=== PATIENT | female | born 1990 | race Two or more races ===

== ENCOUNTER 2018-09-05 23:48 | Emergency (ER) | payer SELFPAY ==
[~2018-09-05] VITALS: Ht 162.6 cm; Wt 106.1 kg
[2018-09-06] VITALS: BP 135/78
--- NOTE | 2018-09-06 00:21 | PHYS DOC ---
Adult General Chief Complaint Chief Complaint: INSECT BITE HPI HPI 28-year-old female presents with concerns about a bug bite. She states a few days ago she got bit behind the left knee by a bug. She states over the next couple days she had some paresthesias in her left arm and leg. She denies a headache. She denies any weakness. She denies any gait disturbance.[] Review of Systems Review of Systems Integument: Denies rash or skin lesions [] Neurologic: Per history of present illness[] All other systems were reviewed and found to be within normal limits, except as documented in this note. Allergies Allergies Allergies Coded Allergies Type Severity Reaction Last Updated Verified clindamycin Allergy Intermediate Rash 03/13/18 Yes Physical Exam Physical Exam Constitutional: Well developed, well nourished, no acute distress, non-toxic appearance. [] HENT: Normocephalic, atraumatic, bilateral external ears normal, oropharynx moist, no oral exudates, nose normal. [] Eyes: PERRLA, EOMI, conjunctiva normal, no discharge. [] Neck: Normal range of motion, no tenderness, supple, no stridor. [] Cardiovascular:Heart rate regular rhythm, no murmur [] Lungs & Thorax: Bilateral breath sounds clear to auscultation [] Abdomen: Bowel sounds normal, soft, no tenderness, no masses, no pulsatile masses. [] Skin: Warm, dry, no erythema, no rash. [] Back: No tenderness, no CVA tenderness. [] Extremities: No tenderness, no cyanosis, no clubbing, ROM intact, no edema. [] Neurologic: Alert and oriented X 3, normal motor function, normal sensory function, no focal deficits noted. [] Psychologic: Affect normal, judgement normal, mood normal. [] EKG EKG [] Radiology/Procedures Radiology/Procedures [] Course & Med Decision Making Course & Med Decision Making Pertinent Labs and Imaging studies reviewed. (See chart for details) [ED course: Evaluation reveals a healthy 28-year-old female in no distress. Her neurologic exam was completely benign. I reassured the patient that I did not feel this was anything serious.] Dragon Disclaimer Dragon Disclaimer This electronic medical record was generated, in whole or in part, using a voice recognition dictation system. Departure Departure Impression: Primary Impression: Left leg paresthesias Additional Impression: Paresthesia Disposition: HOME, SELF-CARE Condition: STABLE Referrals: PETER DUMAS DO (PCP) Patient Instructions: Paresthesia Additional Instructions: Take ibuprofen as we discussed. Rest in a cool quiet dark room this evening. Return to the emergency department with any new or concerning symptoms Problem Qualifiers ANITA VINSON DO Sep 06, 2018 00:21
== END 2018-09-06 00:39 | disposition home or self-care (01) ==
LOC: ER 09-06 00:28
DX: R20.2 Paresthesia of skin (principal); Z88.1 Allergy status to other antibiotic agents
CPT/HCPCS: 99281

== ENCOUNTER 2019-03-25 22:34 | Emergency (ER) | payer OTHER ==
[~2019-03-25] VITALS: Ht 162.6 cm; Wt 98.0 kg
[2019-03-25 22:50] VITALS: BP 137/61
[2019-03-25 23:45] LABS: BILIRUBIN,URINE NEGATIVE (NEG); CLARITY,URINE CLEAR; COLOR,URINE YELLOW; NITRITE,URINE NEGATIVE (NEG); PROTEIN,URINE NEGATIVE (NEG-TRACE); UROBILINOGEN,URINE 0.2 mg/dL (0.2 mg/dL)
[2019-03-25 23:48] LABS: SQUAMOUS EPITHELIAL CELL,UR FEW /LPF
[2019-03-25 23:49] LABS: BACTERIA,URINE FEW /HPF (0-FEW)
[2019-03-26] MEDS ORDERED: CEPH-264 PO (00:27)
[2019-03-26] MEDS ORDERED: HYDR-3164 PO (00:27)
[2019-03-26] MEDS ORDERED: ORPH100T PO (00:28)
--- NOTE | 2019-03-26 00:28 | PHYS DOC ---
Past Medical History Past Medical History: Anemia Additional Past Medical Histor: VITAMIN D DEF (JYOTI OLIVO APRN) Past Surgical History: No Surgical History (JYOTI OLIVO APRN) Alcohol Use: Occasionally Drug Use: None (JYOTI OLIVO APRN) Attending Signature I have participated in the care of this patient and I have reviewed and agree with all pertinent clinical information above including history, exam, and recommendations. (JAMIE HENDERSON MD) Adult General Chief Complaint Chief Complaint: LOWER BACK PAIN OR INJURY HPI HPI Patient is a 28 year old female who presents with a chiropractor earlier this morning. 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 She states is a sharp and achy pain. She states it feels like "as if I jumped and landed on my feet hard". (JYOTI OLIVO APRN) Review of Systems Review of Systems Musculoskeletal: low back pain or joint pain [] All other systems were reviewed and found to be within normal limits, except as documented in this note. (JYOTI OLIVO APRN) Current Medications Current Medications Current Medications Medications (Trade) Dose Ordered Sig/Abeba Start Time Stop Time Status Last Admin Dose Admin Ketorolac Tromethamine (Toradol Im) 60 mg 1X ONCE 03/26/19 00:30 03/26/19 00:31 DC 03/26/19 00:38 60 MG Orphenadrine Citrate (Norflex) 60 mg 1X ONCE 03/26/19 00:30 03/26/19 00:31 DC 03/26/19 00:38 60 MG (JAIME HENDERSON MD) Allergies Allergies Allergies Coded Allergies Type Severity Reaction Last Updated Verified clindamycin Allergy Intermediate Rash 03/13/18 Yes (JAIME HENDERSON MD) Physical Exam Physical Exam Constitutional: Well developed, well nourished, no acute distress, non-toxic appearance. [] HENT: Normocephalic, atraumatic, bilateral external ears normal, oropharynx m oist, no oral exudates, nose normal. [] Eyes: PERRLA, EOMI, conjunctiva normal, no discharge. [] Neck: Normal range of motion, no tenderness, supple, no stridor. [] Cardiovascular:Heart rate regular rhythm, no murmur [] Lungs & Thorax: Bilateral breath sounds clear to auscultation [] Abdomen: Bowel sounds normal, soft, no tenderness, no masses, no pulsatile masses. [] Skin: Warm, dry, no erythema, no rash. [] Back: No tenderness, no CVA tenderness. [] Extremities: No tenderness, no cyanosis, no clubbing, ROM intact, no edema. [] Neurologic: Alert and oriented X 3, normal motor function, normal sensory function, no focal deficits noted. [] Psychologic: Affect normal, judgement normal, mood normal. Normal Physical Exam[] (JYOTI OLIVO APRN) Current Patient Data Vital Signs Vital Signs Date Time Temp Pulse Resp B/P (MAP) Pulse Ox O2 Delivery O2 Flow Rate FiO2 03/25/19 22:50 98.4 89 12 137/61 (86) 98 Room Air 98.4 (JAIME HENDERSON MD) Lab Values Laboratory Tests Test 03/25/19 23:07 03/25/19 23:11 Urine Collection Type Unknown Urine Color Yellow Urine Clarity Clear Urine pH 7.0 Urine Specific [place] 1.020 Urine Protein Negative mg/dL (NEG-TRACE) Urine Glucose (UA) Negative mg/dL (NEG) Urine Ketones (Stick) Negative mg/dL (NEG) Urine Blood Small (NEG) Urine Nitrite Negative (NEG) Urine Bilirubin Negative (NEG) Urine Urobilinogen Dipstick 0.2 mg/dL (0.2 mg/dL) Urine Leukocyte Esterase Large (NEG) Urine RBC 3-5 /HPF (0-2) Urine WBC 11-20 /HPF (0-4) Urine Squamous Epithelial Cells Few /LPF Urine Bacteria Few /HPF (0-FEW) Urine Mucus Slight /LPF POC Urine HCG, Qualitative Hcg negative (Negative) (JAIME HENDERSON MD) EKG EKG [] (JYOTI OLIVO APRN) Radiology/Procedures Radiology/Procedures [] (JYOTI OLIVO APRN) Impressions: [facility] [address] [place] [address] IMAGING REPORT Signed PATIENT: JAVIER VIEIRAACCOUNT: [id number] : 1990 LOCATION: ER AGE: 28 SEX: F EXAM STATUS: REG ER ORD. PHYSICIAN: JYOTI OLIVO APRN REASON: pain PROCEDURE: LUMBAR SPINE MIN 4V Exam: Lumbar spine 4 views INDICATION: Pain TECHNIQUE: Frontal, lateral, bilateral oblique and coned-down magnification view of the sacral junction. Comparisons: None FINDINGS: Vertebral body heights and alignment are well-maintained. No significant spondylotic change in the lumbar spine. Moderate stool burden predominantly in the ascending and descending colon. IMPRESSION: Unremarkable lumbar spine radiograph. Moderate stool burden. Electronically signed by: Vanessa Romero MD (03/26/2019 12:53 AM) [facility] DICTATED and SIGNED BY: VANESSA ROMERO MD DATE: 03/26/1950 (JYOTI OLIVO APRN) Course & Med Decision Making Course & Med Decision Making No tenderness with palpation. Patient has full range of motion of her back and EXTREMITIES. NO WEAKNESSES OR NUMBNESS AND TINGLING. NO DEFORMITY TO HER BACK OR HER SPINE IS FELT. NO BRUISING TO HER BACK. LUNGS ARE CLEAR TO AUSCULTATION LOBES. ALERT AND ORIENTED. PATIENT'S URINALYSIS SHOWS INFECTION. PATIENT STATES IT IS HARD FOR HER TO STAND UP STRAIGHT BECAUSE OF THE PAIN. No CVA tenderness. Abdomen is soft and nontender. Alert and oriented. Speaks in full clear sentences. Skin pink warm and dry. Ambulatory with a steady gait. Patient rates her pain a 10 out of 10 at this time. She states it is worse with movement. Lumbar x-ray shows no acute findings. Patient does have moderate amount of stool. Patient will be treated with antibiotic for her urinary tract infection. (JYOTI OLIVO APRN) Dragon Disclaimer Dragon Disclaimer This electronic medical record was generated, in whole or in part, using a voice recognition dictation system. (JYOTI OLIVO APRN) Departure Departure Impression: Primary Impression: Low back pain Additional Impression: UTI (urinary tract infection) Disposition: 01 HOME, SELF-CARE Condition: STABLE Referrals: PETER DUMAS DO (PCP) Patient Instructions: Low Back Strain with Rehab-SportsMed, Urinary Tract Infection Additional Instructions: Take Medication as prescribed. Follow up with primary care provider. Try using a heating pad to help with pain. Scripts Orphenadrine Citrate (ORPHENADRINE CITRATE) 100 Mg Tablet.er 1 TAB PO BID, #20 TAB Prov: JYOTI OLIVO APRN 03/26/19 Hydrocodone/Apap 5-325 (NORCO 5-325 TABLET) 1 Each Tablet 1 TAB PO PRN Q6HRS PRN for PAIN, #10 TAB 0 Refills Prov: JYOTI OLIVO APRN 03/26/19 Cephalexin (KEFLEX) 500 Mg Capsule 1 CAP PO BID for 7 Days, #14 CAP 0 Refills Prov: JYOTI OLIVO APRN 03/26/19 Problem Qualifiers Primary Impression: Low back pain Chronicity: acute Back pain laterality: bilateral Sciatica presence: without sciatica Qualified Codes: M54.5 - Low back pain Additional Impression: UTI (urinary tract infection) Urinary tract infection type: site unspecified Hematuria presence: with hematuria Qualified Codes: N39.0 - Urinary tract infection, site not specified; R31.9 - Hematuria, unspecified JYOTI OLIVO APRN Mar 26, 2019 00:28 JAIME HENDERSON MD Mar 26, 2019 03:00
[2019-03-26] MEDS: ORPHENADRINE CITRATE 60 MG/2 ML VIAL. IM ONE (00:38)
[2019-03-26] MEDS: KETOROLAC 60 MG/2 ML VIAL. IM ONE (00:38)
--- NOTE | 2019-03-26 00:55 | RAD ---
Exam: Lumbar spine 4 views INDICATION: Pain TECHNIQUE: Frontal, lateral, bilateral oblique and coned-down magnification view of the sacral junction. Comparisons: None FINDINGS: Vertebral body heights and alignment are well-maintained. No significant spondylotic change in the lumbar spine. Moderate stool burden predominantly in the ascending and descending colon. IMPRESSION: Unremarkable lumbar spine radiograph. Moderate stool burden. Electronically signed by: Vanessa Sam MD (03/26/2019 12:53 AM) [facility]
== END 2019-03-26 01:16 | disposition home or self-care (01) ==
LOC: ER 22:34
DX: N39.0 Urinary tract infection, site not specified (principal); R31.9 Hematuria, unspecified; Z86.2 Personal history of diseases of the blood and blood-forming organs and certain disorders involving the immune mechanism; Z88.1 Allergy status to other antibiotic agents
CPT/HCPCS: 72110; 81001; 81025; 87086; 96372; 99285; J1885; J2360

== ENCOUNTER 2019-09-10 16:46 | Observation (INO) | payer OTHER ==
[~2019-09-10] VITALS: Ht 162.6 cm; Wt 100.0 kg
[~2019-09-10 16:46] MED LIST: CEPH-264 PO; HYDR-3164 PO; ORPH100T PO
--- NOTE | 2019-09-10 17:28 | PHYS DOC ---
Past Medical History Past Medical History: Anemia Additional Past Medical Histor: VITAMIN D DEF Past Surgical History: No Surgical History Smoking Status: Never Smoker Alcohol Use: Occasionally Drug Use: None General Adult EDM: Chief Complaint: ABNORMAL LABS HPI: HPI: Patient is a 29 year old female who presented to ER today due to abnormal hemoglobin level. Patient has history of iron deficiency anemia, dysfunctional uterine bleeding. Patient has been dealing with this problem for about 10 years. Patient has been evaluated by her marine erector due to dysfunctional uterine bleeding. Patient normally would have prolonged period. Sometimes she bleeds for a month off and on. Patient was evaluated by her family doctor in the past, diagnosed with iron deficiency anemia, she had received iron transfusion in the past. Patient started her last mental. Sometime at the beginning of July, continue to bleeding at this time. Patient denies heavy vaginal bleeding, she said the bleeding is just like her period. Patient denies any pelvic pain, no abdominal pain, no fever. Patient said she been feeling weak and dizzy, so she went to see her doctor on Friday, some blood work was checked, today her doctor called her to come to ER for evaluation because her hemoglobin level was 5.6. Patient denies any chest pain, no trouble breathing. Patient denies any headache. Review of Systems: Review of Systems: Constitutional: Denies fever or chills. POSITIVE FOR GENERALIZED WEAKNESS. Eyes: Denies change in visual acuity. [ HENT: Denies nasal congestion or sore throat. [] Respiratory: Denies cough or shortness of breath. [] Cardiovascular: Denies chest pain or edema. [] GI: Denies abdominal pain, nausea, vomiting, bloody stools or diarrhea. [] : Positive for vaginal bleeding. Musculoskeletal: Denies back pain or joint pain. [] Integument: Denies rash. [] Neurologic: Denies headache, focal weakness or sensory changes. [] Endocrine: Denies polyuria or polydipsia. [] Lymphatic: Denies swollen glands. [] Psychiatric: Denies depression or anxiety. [] Heart Score: Risk Factors: Risk Factors: DM, Current or recent (<one month) smoker, HTN, HLP, family history of CAD, obesity. Risk Scores: Score 0 - 3: 2.5% MACE over next 6 weeks - Discharge Home Score 4 - 6: 20.3% MACE over next 6 weeks - Admit for Clinical Observation Score 7 - 10: 72.7% MACE over next 6 weeks - Early Invasive Strategies Allergies: Allergies: Allergies Coded Allergies Type Severity Reaction Last Updated Verified clindamycin Allergy Intermediate Rash 03/13/18 Yes Physical Exam: PE: Constitutional: Well developed, well nourished, no acute distress, non-toxic appearance. [] HENT: Normocephalic, atraumatic, bilateral external ears normal, oropharynx moist, no oral exudates, nose normal. [] Eyes: PERRLA, EOMI, conjunctiva normal, no discharge. [] Neck: Normal range of motion, no tenderness, supple, no stridor. [] Cardiovascular:Heart rate regular rhythm, no murmur [] Lungs & Thorax: Bilateral breath sounds clear to auscultation [] Abdomen: Bowel sounds normal, soft, no tenderness, no masses, no pulsatile masses. [] Skin: Warm, dry, no erythema, no rash. [] Back: No tenderness, no CVA tenderness. [] Extremities: No tenderness, no cyanosis, no clubbing, ROM intact, no edema. [] Neurologic: Alert and oriented X 3, normal motor function, normal sensory function, no focal deficits noted. [] Psychologic: Affect normal, judgement normal, mood normal. [] Current Patient Data: Labs: Laboratory Tests Test 09/10/19 16:59 09/10/19 17:25 09/10/19 17:31 Urine Collection Type Unknown Urine Color Red Urine Clarity Cloudy Urine pH 7.0 Urine Specific [place] 1.020 Urine Protein 30 mg/dL Urine Glucose (UA) Negative mg/dL Urine Ketones (Stick) Trace mg/dL Urine Blood Large Urine Nitrite Negative Urine Bilirubin Negative Urine Urobilinogen Dipstick 0.2 mg/dL Urine Leukocyte Esterase Moderate Urine RBC Tntc /HPF Urine WBC 20-40 /HPF Urine Squamous Epithelial Cells Mod /LPF Urine Bacteria Few /HPF Urine Mucus Mod /LPF White Blood Count 9.4 x10^3/uL Red Blood Count 3.16 x10^6/uL Hemoglobin 5.6 g/dL Hematocrit 18.0 % Mean Corpuscular Volume 57 fL Mean Corpuscular Hemoglobin 18 pg Mean Corpuscular Hemoglobin Concent 31 g/dL Red Cell Distribution Width 23.3 % Platelet Count 390 x10^3/uL Neutrophils (%) (Auto) 60 % Lymphocytes (%) (Auto) 32 % Monocytes (%) (Auto) 6 % Eosinophils (%) (Auto) 1 % Basophils (%) (Auto) 1 % Neutrophils # (Auto) 5.7 x10^3/uL Lymphocytes # (Auto) 3.0 x10^3/uL Monocytes # (Auto) 0.5 x10^3/uL Eosinophils # (Auto) 0.1 x10^3/uL Basophils # (Auto) 0.1 x10^3/uL Prothrombin Time 14.4 SEC Prothromb Time International Ratio 1.2 Activated Partial Thromboplast Time 33 SEC Sodium Level 139 mmol/L Potassium Level 3.7 mmol/L Chloride Level 103 mmol/L Carbon Dioxide Level 27 mmol/L Anion Gap 9 Blood Urea Nitrogen 14 mg/dL Creatinine 1.0 mg/dL Estimated GFR (Cockcroft-Gault) 66.5 BUN/Creatinine Ratio 14 Glucose Level 119 mg/dL Calcium Level 8.1 mg/dL Iron Level 7 ug/dL Total Iron Binding Capacity 374 ug/dL Iron Saturation 2 % Total Bilirubin 0.2 mg/dL Aspartate Amino Transf (AST/SGOT) 14 U/L Alanine Aminotransferase (ALT/SGPT) 17 U/L Alkaline Phosphatase 95 U/L Total Protein 7.3 g/dL Albumin 3.6 g/dL Albumin/Globulin Ratio 1.0 Bedside Urine HCG, Qualitative Hcg negative Current Medications Medications (Trade) Dose Ordered Sig/Abeba Route PRN Reason Start Time Stop Time Status Last Admin Dose Admin Ondansetron HCl (Zofran) 4 mg PRN Q8HRS PRN IV NAUSEA/VOMITING 09/10/19 18:30 09/11/19 18:29 EKG: EKG: [] Radiology/Procedures: Radiology/Procedures: [] Course & Med Decision Making: Course & Med Decision Making Pertinent Labs and Imaging studies reviewed. (See chart for details) Patient is a [id number] female who was felt to be anemic, with hemoglobin level at 5.6. Most dynamically patient is stable, I suspect that patient is chronically anemic. Patient will be admitted to hospital for blood transfusion, will check her iron level. Dragon Disclaimer: Dragon Disclaimer: This electronic medical record was generated, in whole or in part, using a voice recognition dictation system. Departure Departure Impression: Primary Impression: Anemia Additional Impression: Dysfunctional uterine bleeding Disposition: 09 ADMITTED INPATIENT Admitting Physician: SANTA (DR. BAEZ) Condition: STABLE Referrals: PETER DUMAS DO (PCP) Justicifation of Admission Dx: Justifications for Admission: Justification of Admission Dx: N/A JOSE MCDANIEL DO Sep 10, 2019 17:28
[2019-09-10 17:41] LABS: BASO # 0.1 x10^3/uL (0.0-0.2); BASO % 1 % (0-3); EOS # 0.1 x10^3/uL (0.0-0.7); EOS % 1 % (0-3); LYMPH % 32 % (24-48); MEAN CORPUSCULAR HEMOGLOBIN 18 pg (25-35); MEAN CORPUSCULAR HGB CONC 31 g/dL (31-37); MEAN CORPUSCULAR VOLUME 57 fL (79-100); MONO # 0.5 x10^3/uL (0.0-1.1); MONO % 6 % (0-9); NEUT # 5.7 x10^3/uL (1.8-7.7); NEUT % 60 % (31-73); PLATELET COUNT 390 x10^3/uL (140-400); RED BLOOD COUNT 3.16 x10^6/uL (3.50-5.40); RED CELL DISTRIBUTION WIDTH 23.3 % (11.5-14.5); WHITE BLOOD COUNT 9.4 x10^3/uL (4.0-11.0)
[2019-09-10 17:43] LABS: CALCIUM 8.1 mg/dL (8.5-10.1); GFR 66.5; POTASSIUM 3.7 mmol/L (3.5-5.1)
[2019-09-10 17:46] LABS: HEMOGLOBIN 5.6 g/dL (12.0-15.5)
[2019-09-10 17:48] LABS: ALBUMIN 3.6 g/dL (3.4-5.0); TOTAL BILIRUBIN 0.2 mg/dL (0.2-1.0); TOTAL PROTEIN 7.3 g/dL (6.4-8.2)
[2019-09-10 18:00] LABS: PROTHROMBIN TIME PATIENT 14.4 SEC (11.7-14.0)
[2019-09-10 18:12] LABS: BILIRUBIN,URINE NEGATIVE (NEG); CLARITY,URINE CLOUDY; NITRITE,URINE NEGATIVE (NEG); PROTEIN,URINE 30 mg/dL (NEG-TRACE); UROBILINOGEN,URINE 0.2 mg/dL (0.2 mg/dL)
[2019-09-10 18:25] LABS: COLOR,URINE RED
[2019-09-10 18:26] LABS: SQUAMOUS EPITHELIAL CELL,UR MOD /LPF
[2019-09-10 18:28] LABS: BACTERIA,URINE FEW /HPF (0-FEW); RBC,URINE TNTC /HPF (0-2); WBC,URINE 20-40 /HPF (0-4)
[2019-09-10] MEDS ORDERED: ONDANSETRON PF 4 MG/2 ML VIAL. IV PRN (18:30)
[2019-09-10 19:07] VITALS: BP 124/60
[2019-09-10 19:16] LABS: ANISOCYTOSIS MOD; HYPOCHROMIA MARKED; MICROCYTOSIS MARKED; OVALOCYTES MOD; PLT ESTIMATE ADEQUATE (ADEQUATE); POLYCHROMASIA SLIGHT
[2019-09-10] MEDS ORDERED: IRON SUCROSE COMPLEX 500 MG in IV NORMAL SALINE 250ML 250 ML IV ONE (19:30)
--- NOTE | 2019-09-10 19:30 | PDOC1 ---
History and Physical Date of Admission Date of Admission DATE: 09/10/19 TIME: 19:24 Source Source: Chart review, Patient History of Present Illness History of Present Illness Patient is a 29 year old female was sent to the ER by Laura Parks for anemia, weakness, and dizzyness worse over the past few days. She has prior known anemia and workup but not the severe, Patient has history of iron deficiency anemia, dysfunctional uterine bleeding, almost 10 years. Her Manager Bench is at [facility], and has prior snowden done. heavy periods since menarche, but probably worse lately. she had received iron transfusion in the past. Seen at primary care for dizzyness this week and labs were checked, her doctor called her to come to ER for evaluation because her hemoglobin level was 5.6. she works at a bank Past Medical History Cardiovascular: No pertinent hx GI: No pertinent hx Heme/Onc: Iron deficiency Anemia Endocrine: No pertinent hx Para: 0 Past Surgical History Past Surgical History: No pertinent history Family History Family History: No Significant Social History Smoke: No ALCOHOL: none Drugs: None Current Problem List Problem List Problems Medical Problems: (1) Anemia Status: Acute (2) Dysfunctional uterine bleeding Status: Acute Current Medications Current Medications Current Medications Ondansetron HCl (Zofran) 4 mg PRN Q8HRS PRN IV NAUSEA/VOMITING; Start 09/10/19 at 18:30; Stop 09/11/19 at 18:29 Active Scripts Active Orphenadrine Citrate 100 Mg Tablet.er 1 Tab PO BID [place] 5-325 Tablet (Acetaminophen/Hydrocodone Bitart) 1 Each Tablet 1 Tab PO PRN Q6HRS PRN Keflex (Cephalexin) 500 Mg Capsule 1 Cap PO BID 7 Days Reported No Known Medications Prior To Admisstion (Info) Each 1 Each DAILY Allergies Allergies: Coded Allergies: clindamycin (Verified Allergy, Intermediate, Rash, 03/13/18) ROS General: YES: Fatigue; No: Night Sweats, Malaise, Appetite, Other PSYCHOLOGICAL ROS: No: Anxiety, Behavioral Disorder, Concentration difficultie, Decreased libido, Depression, Disorientation, Hallucinations, Hostility, I rritablity, Memory difficulties, Mood Swings, Obsessive thoughts, Physical abuse, Sexual abuse, Sleep disturbances, Suicidal ideation, Other Eyes: No Blurry vision, No Decreased vision, No Double vision, No Dry eyes, No Excessive tearing, No Eye Pain, No Itchy Eyes, No Loss of vision, No Photophobia, No Scotomata, No Uses contacts, No Uses glasses, No Other HEENT: No: Heacaches, Visual Changes, Hearing change, Nasal congestion, Nasal discharge, Oral lesions, Sinus pain, Sore Throat, Epistaxis, Sneezing, Snoring, Tinnitus, Vertigo, Vocal changes, Other Cardiovascular: No Chest Pain, No Palpitations, No Orthopnea, No Paroxysmal Noc. Dyspnea, No Edema, No Lt Headedness, No Other Gastrointestinal: No Nausea, No Vomiting, No Abdominal Pain, No Diarrhea, No Constipation, No Melena, No Hematochezia, No Other Genitourinary: No Dysuria, No Frequency, No Incontinence, No Hematuria, No Retention, No Discharge, No Urgency, No Pain, No Flank Pain, No Other, No , No , No , No , No , No , No Musculoskeletal: No Gait Disturbance, No Joint Pain, No Joint Stiffness, No Joint Swelling, No Muscle Pain, No Muscular Weakness, No Pain In:, No Swelling In:, No Other Neurological: Yes Dizziness, Yes Weakness; No Confusion, No Gait Disturbance, No Headaches, No Other Skin: No Dry Skin, No Eczema, No Hair Changes, No Lumps, No Mole Changes, No Mottling, No Nail Changes, No Pruritus, No Rash, No Skin Lesion Changes, No Other, No Acne Physical Exam General: Alert, Oriented X3, Cooperative, No acute distress HEENT: Atraumatic, EOMI, Mucous membr. moist/pink Lungs: Clear to auscultation Heart: RRR Extremities: No clubbing, No cyanosis, No edema, Normal pulses Skin: No breakdown Neuro: Normal tone, Sensation intact Psych/Mental Status: Mental status NL, Mood NL Vitals Vitals Vital Signs Date Time Temp Pulse Resp B/P (MAP) Pulse Ox O2 Delivery O2 Flow Rate FiO2 09/10/19 19:07 98.8 100 16 124/60 98.8 09/10/19 17:15 100 Room Air Labs Labs Laboratory Tests Test 09/10/19 16:59 09/10/19 17:25 09/10/19 17:31 Urine Collection Type Unknown Urine Color Red Urine Clarity Cloudy Urine pH 7.0 (<5.0-8.0) Urine Specific [place] 1.020 (1.000-1.030) Urine Protein 30 mg/dL (NEG-TRACE) Urine Glucose (UA) Negative mg/dL (NEG) Urine Ketones (Stick) Trace mg/dL (NEG) Urine Blood Large (NEG) Urine Nitrite Negative (NEG) Urine Bilirubin Negative (NEG) Urine Urobilinogen Dipstick 0.2 mg/dL (0.2 mg/dL) Urine Leukocyte Esterase Moderate (NEG) Urine RBC Tntc /HPF (0-2) Urine WBC 20-40 /HPF (0-4) Urine Squamous Epithelial Cells Mod /LPF Urine Bacteria Few /HPF (0-FEW) Urine Mucus Mod /LPF White Blood Count 9.4 x10^3/uL (4.0-11.0) Red Blood Count 3.16 x10^6/uL (3.50-5.40) Hemoglobin 5.6 g/dL (12.0-15.5) Hematocrit 18.0 % (36.0-47.0) Mean Corpuscular Volume 57 fL (79-100) Mean Corpuscular Hemoglobin 18 pg (25-35) Mean Corpuscular Hemoglobin Concent 31 g/dL (31-37) Red Cell Distribution Width 23.3 % (11.5-14.5) Platelet Count 390 x10^3/uL (140-400) Neutrophils (%) (Auto) 60 % (31-73) Lymphocytes (%) (Auto) 32 % (24-48) Monocytes (%) (Auto) 6 % (0-9) Eosinophils (%) (Auto) 1 % (0-3) Basophils (%) (Auto) 1 % (0-3) Neutrophils # (Auto) 5.7 x10^3/uL (1.8-7.7) Lymphocytes # (Auto) 3.0 x10^3/uL (1.0-4.8) Monocytes # (Auto) 0.5 x10^3/uL (0.0-1.1) Eosinophils # (Auto) 0.1 x10^3/uL (0.0-0.7) Basophils # (Auto) 0.1 x10^3/uL (0.0-0.2) Platelet Estimate Adequate (ADEQUATE) Polychromasia Slight Hypochromasia Marked Anisocytosis Mod Microcytosis Marked Ovalocytes Mod Prothrombin Time 14.4 SEC (11.7-14.0) Prothromb Time International Ratio 1.2 (0.8-1.1) Activated Partial Thromboplast Time 33 SEC (24-38) Sodium Level 139 mmol/L (136-145) Potassium Level 3.7 mmol/L (3.5-5.1) Chloride Level 103 mmol/L (98-107) Carbon Dioxide Level 27 mmol/L (21-32) Anion Gap 9 (6-14) Blood Urea Nitrogen 14 mg/dL (7-20) Creatinine 1.0 mg/dL (0.6-1.0) Estimated GFR (Cockcroft-Gault) 66.5 BUN/Creatinine Ratio 14 (6-20) Glucose Level 119 mg/dL (70-99) Calcium Level 8.1 mg/dL (8.5-10.1) Iron Level 7 ug/dL (50-170) Total Iron Binding Capacity 374 ug/dL (250-450) Iron Saturation 2 % (15-34) Total Bilirubin 0.2 mg/dL (0.2-1.0) Aspartate Amino Transf (AST/SGOT) 14 U/L (15-37) Alanine Aminotransferase (ALT/SGPT) 17 U/L (14-59) Alkaline Phosphatase 95 U/L (46-116) Total Protein 7.3 g/dL (6.4-8.2) Albumin 3.6 g/dL (3.4-5.0) Albumin/Globulin Ratio 1.0 (1.0-1.7) Bedside Urine HCG, Qualitative Hcg negative (Negative) Laboratory Tests Test 09/10/19 16:59 09/10/19 17:25 09/10/19 17:31 Urine Collection Type Unknown Urine Color Red Urine Clarity Cloudy Urine pH 7.0 (<5.0-8.0) Urine Specific [place] 1.020 (1.000-1.030) Urine Protein 30 mg/dL (NEG-TRACE) Urine Glucose (UA) Negative mg/dL (NEG) Urine Ketones (Stick) Trace mg/dL (NEG) Urine Blood Large (NEG) Urine Nitrite Negative (NEG) Urine Bilirubin Negative (NEG) Urine Urobilinogen Dipstick 0.2 mg/dL (0.2 mg/dL) Urine Leukocyte Esterase Moderate (NEG) Urine RBC Tntc /HPF (0-2) Urine WBC 20-40 /HPF (0-4) Urine Squamous Epithelial Cells Mod /LPF Urine Bacteria Few /HPF (0-FEW) Urine Mucus Mod /LPF White Blood Count 9.4 x10^3/uL (4.0-11.0) Red Blood Count 3.16 x10^6/uL (3.50-5.40) Hemoglobin 5.6 g/dL (12.0-15.5) Hematocrit 18.0 % (36.0-47.0) Mean Corpuscular Volume 57 fL (79-100) Mean Corpuscular Hemoglobin 18 pg (25-35) Mean Corpuscular Hemoglobin Concent 31 g/dL (31-37) Red Cell Distribution Width 23.3 % (11.5-14.5) Platelet Count 390 x10^3/uL (140-400) Neutrophils (%) (Auto) 60 % (31-73) Lymphocytes (%) (Auto) 32 % (24-48) Monocytes (%) (Auto) 6 % (0-9) Eosinophils (%) (Auto) 1 % (0-3) Basophils (%) (Auto) 1 % (0-3) Neutrophils # (Auto) 5.7 x10^3/uL (1.8-7.7) Lymphocytes # (Auto) 3.0 x10^3/uL (1.0-4.8) Monocytes # (Auto) 0.5 x10^3/uL (0.0-1.1) Eosinophils # (Auto) 0.1 x10^3/uL (0.0-0.7) Basophils # (Auto) 0.1 x10^3/uL (0.0-0.2) Platelet Estimate Adequate (ADEQUATE) Polychromasia Slight Hypochromasia Marked Anisocytosis Mod Microcytosis Marked Ovalocytes Mod Prothrombin Time 14.4 SEC (11.7-14.0) Prothromb Time International Ratio 1.2 (0.8-1.1) Activated Partial Thromboplast Time 33 SEC (24-38) Sodium Level 139 mmol/L (136-145) Potassium Level 3.7 mmol/L (3.5-5.1) Chloride Level 103 mmol/L (98-107) Carbon Dioxide Level 27 mmol/L (21-32) Anion Gap 9 (6-14) Blood Urea Nitrogen 14 mg/dL (7-20) Creatinine 1.0 mg/dL (0.6-1.0) Estimated GFR (Cockcroft-Gault) 66.5 BUN/Creatinine Ratio 14 (6-20) Glucose Level 119 mg/dL (70-99) Calcium Level 8.1 mg/dL (8.5-10.1) Iron Level 7 ug/dL (50-170) Total Iron Binding Capacity 374 ug/dL (250-450) Iron Saturation 2 % (15-34) Total Bilirubin 0.2 mg/dL (0.2-1.0) Aspartate Amino Transf (AST/SGOT) 14 U/L (15-37) Alanine Aminotransferase (ALT/SGPT) 17 U/L (14-59) Alkaline Phosphatase 95 U/L (46-116) Total Protein 7.3 g/dL (6.4-8.2) Albumin 3.6 g/dL (3.4-5.0) Albumin/Globulin Ratio 1.0 (1.0-1.7) Bedside Urine HCG, Qualitative Hcg negative (Negative) VTE Prophylaxis Ordered VTE Prophylaxis Devices: No VTE Pharmacological Prophylaxi: Contraindicated Assessment/Plan Assessment/Plan symptomatic anemia the ER has ordered 1 u prbc iron defieciency anemia, large dose of IV iron ordered menorrhagia, f/u with Manager Bench at [facility], [place] has not shown fibroids obese, BMI 37 Dm2, metformin, weight loss benefit discussed she is trying to conceive and has not been interested in oral contraception to help this problem Justicifation of Admission Dx: Justifications for Admission: Justification of Admission Dx: No (obs) ADDISON BAEZ MD Sep 10, 2019 19:30
[2019-09-10 19:31] VITALS: BP 130/60
[2019-09-10] MEDS ORDERED: ZOLPIDEM 5 MG TABLET. PO PRN (19:45)
[2019-09-10 19:52] VITALS: BP 126/66
[2019-09-10 20:30] VITALS: BP 117/52
[2019-09-10] MEDS: CYCLOBENZAPRINE 10 MG TABLET. PO SCH (21:00)
[2019-09-10 21:30] VITALS: BP 111/63
[2019-09-10 22:30] VITALS: BP 105/58
[2019-09-11] VITALS (9 sets, daily range): BP systolic 103–135; BP diastolic 60–71
[2019-09-11] MEDS ORDERED: VITAMIN B12,B9,B6 COMPLEX 1 TABLET. PO SCH (09:00)
[2019-09-11] MEDS: CYCLOBENZAPRINE 10 MG TABLET. PO SCH (09:00)
[2019-09-11 09:35] LABS: RED BLOOD COUNT 3.44 x10^6/uL (3.50-5.40); RED CELL DISTRIBUTION WIDTH 26.9 % (11.5-14.5); WHITE BLOOD COUNT 6.9 x10^3/uL (4.0-11.0)
[2019-09-11 09:40] LABS: HEMATOCRIT 20.7 % (36.0-47.0); HEMOGLOBIN 6.4 g/dL (12.0-15.5)
[2019-09-11] MEDS ORDERED: FERR-36 PO (10:12)
[2019-09-11] MEDS ORDERED: PNV1TABL78 PO (10:12)
[2019-09-11] MEDS ORDERED: NORG1TAB70 PO (10:12)
--- NOTE | 2019-09-11 10:15 | PDOC3 ---
Discharge Summary Visit Information Date of Admission: Sep 10, 2019 Date of Discharge: Sep 11, 2019 Final Diagnosis symptomatic anemia iron defieciency anemia, menorrhagia, dysfunctional bleeding, prior US has not shown fibroids obese, BMI 37 pre diabetes em Problems Medical Problems: (1) Anemia Status: Acute (2) Dysfunctional uterine bleeding Status: Acute Brief Hospital Course Allergies Allergies Coded Allergies Type Severity Reaction Last Updated Verified clindamycin Allergy Intermediate Rash 03/13/18 Yes Vital Signs Vital Signs Date Time Temp Pulse Resp B/P (MAP) Pulse Ox O2 Delivery O2 Flow Rate FiO2 09/11/19 08:10 98.1 76 16 114/65 (81) 99 Room Air 98.1 Lab Results Laboratory Tests Test 09/10/19 16:59 09/10/19 17:25 09/10/19 17:31 09/11/19 09:23 Urine Collection Type Unknown Urine Color Red Urine Clarity Cloudy Urine pH 7.0 (<5.0-8.0) Urine Specific [place] 1.020 (1.000-1.030) Urine Protein 30 mg/dL (NEG-TRACE) Urine Glucose (UA) Negative mg/dL (NEG) Urine Ketones (Stick) Trace mg/dL (NEG) Urine Blood Large (NEG) Urine Nitrite Negative (NEG) Urine Bilirubin Negative (NEG) Urine Urobilinogen Dipstick 0.2 mg/dL (0.2 mg/dL) Urine Leukocyte Esterase Moderate (NEG) Urine RBC Tntc /HPF (0-2) Urine WBC 20-40 /HPF (0-4) Urine Squamous Epithelial Cells Mod /LPF Urine Bacteria Few /HPF (0-FEW) Urine Mucus Mod /LPF White Blood Count 9.4 x10^3/uL (4.0-11.0) 6.9 x10^3/uL (4.0-11.0) Red Blood Count 3.16 x10^6/uL (3.50-5.40) 3.44 x10^6/uL (3.50-5.40) Hemoglobin 5.6 g/dL (12.0-15.5) 6.4 g/dL (12.0-15.5) Hematocrit 18.0 % (36.0-47.0) 20.7 % (36.0-47.0) Mean Corpuscular Volume 57 fL (79-100) 60 fL (79-100) Mean Corpuscular Hemoglobin 18 pg (25-35) 19 pg (25-35) Mean Corpuscular Hemoglobin Concent 31 g/dL (31-37) 31 g/dL (31-37) Red Cell Distribution Width 23.3 % (11.5-14.5) 26.9 % (11.5-14.5) Platelet Count 390 x10^3/uL (140-400) 333 x10^3/uL (140-400) Neutrophils (%) (Auto) 60 % (31-73) Lymphocytes (%) (Auto) 32 % (24-48) Monocytes (%) (Auto) 6 % (0-9) Eosinophils (%) (Auto) 1 % (0-3) Basophils (%) (Auto) 1 % (0-3) Neutrophils # (Auto) 5.7 x10^3/uL (1.8-7.7) Lymphocytes # (Auto) 3.0 x10^3/uL (1.0-4.8) Monocytes # (Auto) 0.5 x10^3/uL (0.0-1.1) Eosinophils # (Auto) 0.1 x10^3/uL (0.0-0.7) Basophils # (Auto) 0.1 x10^3/uL (0.0-0.2) Platelet Estimate Adequate (ADEQUATE) Polychromasia Slight Hypochromasia Marked Anisocytosis Mod Microcytosis Marked Ovalocytes Mod Prothrombin Time 14.4 SEC (11.7-14.0) Prothromb Time International Ratio 1.2 (0.8-1.1) Activated Partial Thromboplast Time 33 SEC (24-38) Sodium Level 139 mmol/L (136-145) Potassium Level 3.7 mmol/L (3.5-5.1) Chloride Level 103 mmol/L (98-107) Carbon Dioxide Level 27 mmol/L (21-32) Anion Gap 9 (6-14) Blood Urea Nitrogen 14 mg/dL (7-20) Creatinine 1.0 mg/dL (0.6-1.0) Estimated GFR (Cockcroft-Gault) 66.5 BUN/Creatinine Ratio 14 (6-20) Glucose Level 119 mg/dL (70-99) Calcium Level 8.1 mg/dL (8.5-10.1) Iron Level 7 ug/dL (50-170) Total Iron Binding Capacity 374 ug/dL (250-450) Iron Saturation 2 % (15-34) Total Bilirubin 0.2 mg/dL (0.2-1.0) Aspartate Amino Transf (AST/SGOT) 14 U/L (15-37) Alanine Aminotransferase (ALT/SGPT) 17 U/L (14-59) Alkaline Phosphatase 95 U/L (46-116) Total Protein 7.3 g/dL (6.4-8.2) Albumin 3.6 g/dL (3.4-5.0) Albumin/Globulin Ratio 1.0 (1.0-1.7) Bedside Urine HCG, Qualitative Hcg negative (Negative) Laboratory Tests Test 09/10/19 16:59 09/10/19 17:25 09/10/19 17:31 09/11/19 09:23 Urine Collection Type Unknown Urine Color Red Urine Clarity Cloudy Urine pH 7.0 (<5.0-8.0) Urine Specific [place] 1.020 (1.000-1.030) Urine Protein 30 mg/dL (NEG-TRACE) Urine Glucose (UA) Negative mg/dL (NEG) Urine Ketones (Stick) Trace mg/dL (NEG) Urine Blood Large (NEG) Urine Nitrite Negative (NEG) Urine Bilirubin Negative (NEG) Urine Urobilinogen Dipstick 0.2 mg/dL (0.2 mg/dL) Urine Leukocyte Esterase Moderate (NEG) Urine RBC Tntc /HPF (0-2) Urine WBC 20-40 /HPF (0-4) Urine Squamous Epithelial Cells Mod /LPF Urine Bacteria Few /HPF (0-FEW) Urine Mucus Mod /LPF White Blood Count 9.4 x10^3/uL (4.0-11.0) 6.9 x10^3/uL (4.0-11.0) Red Blood Count 3.16 x10^6/uL (3.50-5.40) 3.44 x10^6/uL (3.50-5.40) Hemoglobin 5.6 g/dL (12.0-15.5) 6.4 g/dL (12.0-15.5) Hematocrit 18.0 % (36.0-47.0) 20.7 % (36.0-47.0) Mean Corpuscular Volume 57 fL (79-100) 60 fL (79-100) Mean Corpuscular Hemoglobin 18 pg (25-35) 19 pg (25-35) Mean Corpuscular Hemoglobin Concent 31 g/dL (31-37) 31 g/dL (31-37) Red Cell Distribution Width 23.3 % (11.5-14.5) 26.9 % (11.5-14.5) Platelet Count 390 x10^3/uL (140-400) 333 x10^3/uL (140-400) Neutrophils (%) (Auto) 60 % (31-73) Lymphocytes (%) (Auto) 32 % (24-48) Monocytes (%) (Auto) 6 % (0-9) Eosinophils (%) (Auto) 1 % (0-3) Basophils (%) (Auto) 1 % (0-3) Neutrophils # (Auto) 5.7 x10^3/uL (1.8-7.7) Lymphocytes # (Auto) 3.0 x10^3/uL (1.0-4.8) Monocytes # (Auto) 0.5 x10^3/uL (0.0-1.1) Eosinophils # (Auto) 0.1 x10^3/uL (0.0-0.7) Basophils # (Auto) 0.1 x10^3/uL (0.0-0.2) Platelet Estimate Adequate (ADEQUATE) Polychromasia Slight Hypochromasia Marked Anisocytosis Mod Microcytosis Marked Ovalocytes Mod Prothrombin Time 14.4 SEC (11.7-14.0) Prothromb Time International Ratio 1.2 (0.8-1.1) Activated Partial Thromboplast Time 33 SEC (24-38) Sodium Level 139 mmol/L (136-145) Potassium Level 3.7 mmol/L (3.5-5.1) Chloride Level 103 mmol/L (98-107) Carbon Dioxide Level 27 mmol/L (21-32) Anion Gap 9 (6-14) Blood Urea Nitrogen 14 mg/dL (7-20) Creatinine 1.0 mg/dL (0.6-1.0) Estimated GFR (Cockcroft-Gault) 66.5 BUN/Creatinine Ratio 14 (6-20) Glucose Level 119 mg/dL (70-99) Calcium Level 8.1 mg/dL (8.5-10.1) Iron Level 7 ug/dL (50-170) Total Iron Binding Capacity 374 ug/dL (250-450) Iron Saturation 2 % (15-34) Total Bilirubin 0.2 mg/dL (0.2-1.0) Aspartate Amino Transf (AST/SGOT) 14 U/L (15-37) Alanine Aminotransferase (ALT/SGPT) 17 U/L (14-59) Alkaline Phosphatase 95 U/L (46-116) Total Protein 7.3 g/dL (6.4-8.2) Albumin 3.6 g/dL (3.4-5.0) Albumin/Globulin Ratio 1.0 (1.0-1.7) Bedside Urine HCG, Qualitative Hcg negative (Negative) Brief Hospital Course Ms. Wilburn is a 29 old female, sent by her primary care for dizzyness and hgb of 5.6 1 u PRBC given 500mg IV iron, DC on PO iron, , start oral contraception for some time and then try to conceive, discussed fertility consult with [facility] or [facility] [ ] Discharge Information Condition at Discharge: Improved Follow Up: Weeks Disposition/Orders: D/C to Home Scheduled Ferrous Sulfate (Iron) 325 Mg Tablet, 1 TAB PO DAILY for iron deficiency for 30 Days, #30 Ref 0 Prescribed by: ADDISON BAEZ on 09/11/19 1012 Norgestimate-Ethinyl Estradiol (Ortho Tri-Cyclen) 1 Each Tablet, 1 TAB PO DAILY for dysfunctional bleeding for 28 Days, #28 Ref 0 Prescribed by: ADDISON BAEZ on 09/11/19 1012 Pnv No.122/Iron/Folic Acid ( Multi Tablet) 1 Each Tablet, 1 TAB PO DAILY for plan for 100 Days, #100 Ref 0 Prescribed by: ADDISON BAEZ on 09/11/19 1012 Discontinued Medications Cephalexin (Keflex) 500 Mg Capsule, 1 CAP PO BID for 7 Days, #14 Ref 0 Prescribed by: JYOTI OLIVO APRN on 03/26/19 0027 Last Action: HELD on 09/10/19 193 by ADDISON BAEZ Hydrocodone/Apap 5-325 ([place] 5-325 Tablet) 1 Each Tablet, 1 TAB PO PRN Q6HRS PRN for PAIN, #10 Ref 0 Prescribed by: JYOTI OLIVO APRN on 03/26/19 0027 Last Action: HELD on 09/10/191930 by ADDISON BAEZ Info (No Known Medications Prior To Admisstion) Each, 1 EACH MC DAILY for no meds , (Reported) Entered as Reported by: MULUGETA REDD on 03/06/18 1250 Last Action: HELD on 09/10/191930 by ADDISON BAEZ Orphenadrine Citrate (Orphenadrine Citrate) 100 Mg Tablet.er, 1 TAB PO BID, #20 Prescribed by: JYOTI OLIVO APRN on 03/26/19 0028 Last Action: Converted on 09/10/191930 by ADDISON BAEZ Patient Instructions Patient Instructions > 30 min face to face Justicifation of Admission Dx: Justifications for Admission: Justification of Admission Dx: No (obs) ADDISON BAEZ MD Sep 11, 2019 10:15
--- NOTE | 2019-09-11 11:56 | PDOC2 ---
CONSULT Date of Consult Date of Consult DATE: 09/11/19 TIME: 11:47 Reason for Consult Reason for Consult: anemia and AUB Referring Physician Referring Physician: Dr. Alex Identification/Chief Complaint Chief Complaint vaginal bleeding and fatigue Source Source: Chart review, Patient History of Present Illness Reason for Visit: 29 y/o G0 presented to ED with c/o vaginal bleeding and fatigue. She is currently on menses for past 1 month. She reports 10 year h/o heavy, irregular bleeding. She is attempting . Hgb 6.4 after 1 unit PRBC and IV iron treatment. Recommend additional unit PRBC's and pelvic sono. She reports normal thyroid studies in the last 6 months. Past Medical History Cardiovascular: No pertinent hx GI: No pertinent hx Heme/Onc: Iron deficiency Anemia Endocrine: No pertinent hx Para: 0 Past Surgical History Past Surgical History: No pertinent history Family History Family History: No Significant Social History No ALCOHOL: none Drugs: None Current Problem List Problem List Problems Medical Problems: (1) Anemia Status: Acute (2) Dysfunctional uterine bleeding Status: Acute Current Medications Current Medications Current Medications Ondansetron HCl (Zofran) 4 mg PRN Q8HRS PRN IV NAUSEA/VOMITING; Start 09/10/19 at 18:30; Stop 09/11/19 at 18:29 Iron Sucrose 500 mg/Sodium Chloride 275 ml @ 78.571 mls/ hr 1X ONCE IV Last administered on 09/10/19at 22:50; Start 09/10/19 at 19:30; Stop 09/10/19 at 22:59; Status DC Cyclobenzaprine HCl (Flexeril) 10 mg TID PO ; Start 09/10/19 at 21:00 Vitamin B Complex (Folbic Tablet) 1 tab DAILY PO Last administered on 09/11/19at 10:40; Start 09/11/19 at 09:00 Zolpidem Tartrate (Ambien) 5 mg PRN QHS PRN PO INSOMNIA; Start 09/10/19 at 19:45 Active Scripts Active Ortho Tri-Cyclen (Norgestimate-Ethinyl Estradiol) 1 Each Tablet 1 Tab PO DAILY 28 Days Iron (Ferrous Sulfate) 325 Mg Tablet 1 Tab PO DAILY 30 Days Multi Tablet (Pnv No.122/Iron/Folic Acid) 1 Each Tablet 1 Tab PO DAILY 100 Days Allergies Allergies: Coded Allergies: clindamycin (Verified Allergy, Intermediate, Rash, 03/13/18) ROS General: YES: Fatigue, Malaise; No: Chills, Night Sweats, Appetite, Other PSYCHOLOGICAL ROS: YES: Anxiety; No: Behavioral Disorder, Concentration difficultie, Decreased libido, Depression, Disorientation, Hallucinations, Hostility, Irritablity, Memory difficulties, Mood Swings, Obsessive thoughts, Physical abuse, Sexual abuse, Sleep disturbances, Suicidal ideation, Other Eyes: No Blurry vision, No Decreased vision, No Double vision, No Dry eyes, No Excessive tearing, No Eye Pain, No Itchy Eyes, No Loss of vision, No Photophobia, No Scotomata, No Uses contacts, No Uses glasses, No Other HEENT: No: Heacaches, Visual Changes, Hearing change, Nasal congestion, Nasal discharge, Oral lesions, Sinus pain, Sore Throat, Epistaxis, Sneezing, Snoring, Tinnitus, Vertigo, Vocal changes, Other ALLERGY AND IMMUNOLOGY: No: Hives, Insect Bite Sensitivity, Itchy/Watery Eyes, Nasal Congestion, Post Nasal Drip, Seasonal Allergies, Other ENDOCRINE: No: Breast Changes, Galactorrhea, Hair Pattern Changes, Hot Flashes, Malaise/lethargy, Mood Swings, Palpitations, Polydipsia/polyuria, Skin Changes, Temperature Intolerance, Unexpected Weight Changes, Other Respiratory: No: Cough, Hemoptysis, Orthopnea, Pleuritic Pain, Shortness of breath, SOB with excertion, Sputum Changes, Stridor, Tachypnea, Wheezing, Other Cardiovascular: No Chest Pain, No Palpitations, No Orthopnea, No Paroxysmal Noc. Dyspnea, No Edema, No Lt Headedness, No Other Gastrointestinal: No Nausea, No Vomiting, No Abdominal Pain, No Diarrhea, No Constipation, No Melena, No Hematochezia, No Other Genitourinary: No Dysuria, No Frequency, No Incontinence, No Hematuria, No Retention, No Discharge, No Urgency, No Pain, No Flank Pain, No Other, No , No , No , No , No , No , No Musculoskeletal: No Gait Disturbance, No Joint Pain, No Joint Stiffness, No Joint Swelling, No Muscle Pain, No Muscular Weakness, No Pain In:, No Swelling In:, No Other Neurological: No Behavorial Changes, No Bowel/Bladder ControlChng, No Confusion, No Dizziness, No Gait Disturbance, No Headaches, No Impaired Coord/balance, No Memory Loss, No Numbness/Tingling, No Seizures, No Speech Problems, No Tremors, No Visual Changes, No Weakness, No Other Physical Exam General: Alert, Oriented X3, Cooperative HEENT: Atraumatic Lungs: Clear to auscultation Heart: Regular rate Abdomen: Normal bowel sounds, Soft, No tenderness, No masses Skin: No rashes, No significant lesion Neuro: Normal gait Psych/Mental Status: Mental status NL Vitals VITALS Vital Signs Date Time Temp Pulse Resp B/P (MAP) Pulse Ox O2 Delivery O2 Flow Rate FiO2 09/11/19 08:10 98.1 76 16 114/65 (81) 99 Room Air 98.1 Labs Labs Laboratory Tests Test 09/10/19 16:59 09/10/19 17:25 09/10/19 17:31 09/11/19 09:23 Urine Collection Type Unknown Urine Color Red Urine Clarity Cloudy Urine pH 7.0 (<5.0-8.0) Urine Specific [place] 1.020 (1.000-1.030) Urine Protein 30 mg/dL (NEG-TRACE) Urine Glucose (UA) Negative mg/dL (NEG) Urine Ketones (Stick) Trace mg/dL (NEG) Urine Blood Large (NEG) Urine Nitrite Negative (NEG) Urine Bilirubin Negative (NEG) Urine Urobilinogen Dipstick 0.2 mg/dL (0.2 mg/dL) Urine Leukocyte Esterase Moderate (NEG) Urine RBC Tntc /HPF (0-2) Urine WBC 20-40 /HPF (0-4) Urine Squamous Epithelial Cells Mod /LPF Urine Bacteria Few /HPF (0-FEW) Urine Mucus Mod /LPF White Blood Count 9.4 x10^3/uL (4.0-11.0) 6.9 x10^3/uL (4.0-11.0) Red Blood Count 3.16 x10^6/uL (3.50-5.40) 3.44 x10^6/uL (3.50-5.40) Hemoglobin 5.6 g/dL (12.0-15.5) 6.4 g/dL (12.0-15.5) Hematocrit 18.0 % (36.0-47.0) 20.7 % (36.0-47.0) Mean Corpuscular Volume 57 fL (79-100) 60 fL (79-100) Mean Corpuscular Hemoglobin 18 pg (25-35) 19 pg (25-35) Mean Corpuscular Hemoglobin Concent 31 g/dL (31-37) 31 g/dL (31-37) Red Cell Distribution Width 23.3 % (11.5-14.5) 26.9 % (11.5-14.5) Platelet Count 390 x10^3/uL (140-400) 333 x10^3/uL (140-400) Neutrophils (%) (Auto) 60 % (31-73) Lymphocytes (%) (Auto) 32 % (24-48) Monocytes (%) (Auto) 6 % (0-9) Eosinophils (%) (Auto) 1 % (0-3) Basophils (%) (Auto) 1 % (0-3) Neutrophils # (Auto) 5.7 x10^3/uL (1.8-7.7) Lymphocytes # (Auto) 3.0 x10^3/uL (1.0-4.8) Monocytes # (Auto) 0.5 x10^3/uL (0.0-1.1) Eosinophils # (Auto) 0.1 x10^3/uL (0.0-0.7) Basophils # (Auto) 0.1 x10^3/uL (0.0-0.2) Platelet Estimate Adequate (ADEQUATE) Polychromasia Slight Hypochromasia Marked Anisocytosis Mod Microcytosis Marked Ovalocytes Mod Prothrombin Time 14.4 SEC (11.7-14.0) Prothromb Time International Ratio 1.2 (0.8-1.1) Activated Partial Thromboplast Time 33 SEC (24-38) Sodium Level 139 mmol/L (136-145) Potassium Level 3.7 mmol/L (3.5-5.1) Chloride Level 103 mmol/L (98-107) Carbon Dioxide Level 27 mmol/L (21-32) Anion Gap 9 (6-14) Blood Urea Nitrogen 14 mg/dL (7-20) Creatinine 1.0 mg/dL (0.6-1.0) Estimated GFR (Cockcroft-Gault) 66.5 BUN/Creatinine Ratio 14 (6-20) Glucose Level 119 mg/dL (70-99) Calcium Level 8.1 mg/dL (8.5-10.1) Iron Level 7 ug/dL (50-170) Total Iron Binding Capacity 374 ug/dL (250-450) Iron Saturation 2 % (15-34) Total Bilirubin 0.2 mg/dL (0.2-1.0) Aspartate Amino Transf (AST/SGOT) 14 U/L (15-37) Alanine Aminotransferase (ALT/SGPT) 17 U/L (14-59) Alkaline Phosphatase 95 U/L (46-116) Total Protein 7.3 g/dL (6.4-8.2) Albumin 3.6 g/dL (3.4-5.0) Albumin/Globulin Ratio 1.0 (1.0-1.7) Bedside Urine HCG, Qualitative Hcg negative (Negative) Laboratory Tests Test 09/10/19 16:59 09/10/19 17:25 09/10/19 17:31 09/11/19 09:23 Urine Collection Type Unknown Urine Color Red Urine Clarity Cloudy Urine pH 7.0 (<5.0-8.0) Urine Specific [place] 1.020 (1.000-1.030) Urine Protein 30 mg/dL (NEG-TRACE) Urine Glucose (UA) Negative mg/dL (NEG) Urine Ketones (Stick) Trace mg/dL (NEG) Urine Blood Large (NEG) Urine Nitrite Negative (NEG) Urine Bilirubin Negative (NEG) Urine Urobilinogen Dipstick 0.2 mg/dL (0.2 mg/dL) Urine Leukocyte Esterase Moderate (NEG) Urine RBC Tntc /HPF (0-2) Urine WBC 20-40 /HPF (0-4) Urine Squamous Epithelial Cells Mod /LPF Urine Bacteria Few /HPF (0-FEW) Urine Mucus Mod /LPF White Blood Count 9.4 x10^3/uL (4.0-11.0) 6.9 x10^3/uL (4.0-11.0) Red Blood Count 3.16 x10^6/uL (3.50-5.40) 3.44 x10^6/uL (3.50-5.40) Hemoglobin 5.6 g/dL (12.0-15.5) 6.4 g/dL (12.0-15.5) Hematocrit 18.0 % (36.0-47.0) 20.7 % (36.0-47.0) Mean Corpuscular Volume 57 fL (79-100) 60 fL (79-100) Mean Corpuscular Hemoglobin 18 pg (25-35) 19 pg (25-35) Mean Corpuscular Hemoglobin Concent 31 g/dL (31-37) 31 g/dL (31-37) Red Cell Distribution Width 23.3 % (11.5-14.5) 26.9 % (11.5-14.5) Platelet Count 390 x10^3/uL (140-400) 333 x10^3/uL (140-400) Neutrophils (%) (Auto) 60 % (31-73) Lymphocytes (%) (Auto) 32 % (24-48) Monocytes (%) (Auto) 6 % (0-9) Eosinophils (%) (Auto) 1 % (0-3) Basophils (%) (Auto) 1 % (0-3) Neutrophils # (Auto) 5.7 x10^3/uL (1.8-7.7) Lymphocytes # (Auto) 3.0 x10^3/uL (1.0-4.8) Monocytes # (Auto) 0.5 x10^3/uL (0.0-1.1) Eosinophils # (Auto) 0.1 x10^3/uL (0.0-0.7) Basophils # (Auto) 0.1 x10^3/uL (0.0-0.2) Platelet Estimate Adequate (ADEQUATE) Polychromasia Slight Hypochromasia Marked Anisocytosis Mod Microcytosis Marked Ovalocytes Mod Prothrombin Time 14.4 SEC (11.7-14.0) Prothromb Time International Ratio 1.2 (0.8-1.1) Activated Partial Thromboplast Time 33 SEC (24-38) Sodium Level 139 mmol/L (136-145) Potassium Level 3.7 mmol/L (3.5-5.1) Chloride Level 103 mmol/L (98-107) Carbon Dioxide Level 27 mmol/L (21-32) Anion Gap 9 (6-14) Blood Urea Nitrogen 14 mg/dL (7-20) Creatinine 1.0 mg/dL (0.6-1.0) Estimated GFR (Cockcroft-Gault) 66.5 BUN/Creatinine Ratio 14 (6-20) Glucose Level 119 mg/dL (70-99) Calcium Level 8.1 mg/dL (8.5-10.1) Iron Level 7 ug/dL (50-170) Total Iron Binding Capacity 374 ug/dL (250-450) Iron Saturation 2 % (15-34) Total Bilirubin 0.2 mg/dL (0.2-1.0) Aspartate Amino Transf (AST/SGOT) 14 U/L (15-37) Alanine Aminotransferase (ALT/SGPT) 17 U/L (14-59) Alkaline Phosphatase 95 U/L (46-116) Total Protein 7.3 g/dL (6.4-8.2) Albumin 3.6 g/dL (3.4-5.0) Albumin/Globulin Ratio 1.0 (1.0-1.7) Bedside Urine HCG, Qualitative Hcg negative (Negative) Assessment/Plan Assessment/Plan A: AUB Severe iron deficiency anemia P: Pelvic sono and 1 additional unit PRBC's. Recheck H&H 3 hours after transfusion completed. Rx Provera BID cycled. F/u clinic in 2 weeks. MYLES BURTON Jr, MD Sep 11, 2019 11:55
--- NOTE | 2019-09-11 18:14 | RAD ---
INDICATION: Vaginal bleeding. Last menstrual period is uncertain. COMPARISON: None available. TECHNIQUE: Transabdominal and endovaginal sonography was performed FINDINGS: The uterus measures 8.2 x 5.5 x 4.3 cm. Cm. The endometrium measures 1 cm on endovaginal images. There is no focal myometrial abnormality The right ovary measures 3.9 x 1.6 x 2 cm on endovaginal images. The left ovary measures 2.8 x 2.4 x 2.6 cm on endovaginal images. 2.3 cm right adnexal cyst likely represents a small follicle. Flow seen to both ovaries. No evidence for torsion. There is no free fluid. IMPRESSION: 1. Endometrium measures 1 cm on endovaginal image, can be correlated with phase of menstrual cycle, likely physiologic. 2. 2.3 cm right adnexal cyst likely represents a follicle. However consider short interval follow-up ultrasound in 6-12 weeks if clinically indicated. 3. No evidence for ovarian torsion. Electronically signed by: Marcelo Gonzales MD (09/11/2019 6:11 PM) MATTHEW
[2019-09-11 20:11] LABS: HEMOGLOBIN 7.9 g/dL (12.0-15.5); RED BLOOD COUNT 3.91 x10^6/uL (3.50-5.40); RED CELL DISTRIBUTION WIDTH 30.1 % (11.5-14.5); WHITE BLOOD COUNT 10.7 x10^3/uL (4.0-11.0)
--- NOTE | 2019-09-11 20:32 | NUR ---
discharge pt ambulated off unit accompanied by certified hyperbaric technician. States she is feeling much better/ Denies pain, dizziness, nausea, and lightheadedness. Vitals temp 99.1 pulse 86 BP 135/71 R 18 O2 98%. H/H prior to discharge 7.12/23. Discharge instructions given. Pt denied further questions. Discharged home with family.
== END 2019-09-11 20:32 | disposition home or self-care (01) ==
LOC: ER 16:46 → 3 NORTH 18:13
PROVIDERS: ADMIT Internal Medicine; ATTEND Internal Medicine
DX: N92.0 Excessive and frequent menstruation with regular cycle (principal); N93.8 Other specified abnormal uterine and vaginal bleeding; D64.9 Anemia, unspecified; R42 Dizziness and giddiness; E11.9 Type 2 diabetes mellitus without complications; E66.9 Obesity, unspecified; Z68.37 Body mass index [BMI] 37.0-37.9, adult; Z88.1 Allergy status to other antibiotic agents
CPT/HCPCS: 36415; 76830; 76856; 80053; 81001; 81025; 83540; 83550; 85025; 85027; 85610; 85730; 86850; 86900; 86901; 86920; 87086; 96365; 96366; 99284; G0378; G0379; J1756; J7050; P9016; J7030